=== PATIENT | female | born 1995 | race Caucasian/White ===

== ENCOUNTER 2018-07-20 09:09 | Emergency (ER) | payer OTHER, SELFPAY ==
[2018-07-20 09:11] VITALS: BP 113/63; PULSE 73; RESP 14; TEMP 36.8; O2SAT 100; BMI 23.8
--- NOTE | 2018-07-20 09:29 | ED.RN ---
PT IS TO BE DRUG TESTED THRU [facility] PER [employer] AT THE [facility]
--- NOTE | 2018-07-20 09:41 | ED.DCSUM_ITS ---
- ER Visit Summary Date of Service: 07/20/18 Chief Complaint: Right shoulder pain History of Present Illness: The patient is a 23 F who injured her right shoulder at work on July 18. 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 It is increasingly painful. Worse with use and better with rest. She has been taking ibuprofen, but the pain persistent. Denies any history of this in the past. No other medical or surgical history. Physical Examination: Afebrile and vital signs unremarkable. Patient sitting in no acute distress. Alert and oriented. Right shoulder shows normal inspection. Diffusely tender to palpation, especially over the superior scapular region. No laxity. Good range of motion. Sensation intact distally. Normal strength and pulses. Test Results: X-rays of the right shoulder are pending. Emergency Department Course and Treatment: Patient declined pain medicine. Will reassess after x-rays. X-rays were negative. Patient was given instructions to return to work. No lifting with her right arm. Follow-up with corporate care. Rest and ice. Anti-inflammatories for pain. Treatment Plan: Above Disposition: Discharged Impression: 1. Strain of right shoulder This note was generated with [employer] dictation software. It may contain incorrect words, spelling, and punctuation that were not noted in review of the chart prior to signing ED Disposition - Plan for ED Patient: Chief Complaint: Upper Extremity Injury Referrals: Syl Rivera MD [Primary Care Provider] -
--- NOTE | 2018-07-20 09:42 | RAD_ITS ---
STUDY: X-RAY - RIGHT SHOULDER REASON FOR EXAM: Female, 23 years old. Pain following injury. TECHNIQUE: 2 view(s) of the shoulder. COMPARISON: None. FINDINGS: Normal glenohumeral articulation. Normal acromioclavicular joint. Normal acromion. Normal humeral head and visualized proximal humerus. The soft tissue structures are unremarkable. Normal visualized pulmonary apex. RAD/Shoulder min 2 Views IMPRESSION: Normal x-ray examination of the shoulder. Electronically Signed: Miles Soria MD at 10:04 EST Tel [phone], Service support ,
--- NOTE | 2018-07-20 10:40 | ED.DEP ---
ED Disposition - Plan for ED Patient: Chief Complaint: Upper Extremity Injury Instructions: ED Sprain Shoulder Referrals: Corporate,[facility] [GROUP OF PHYSICIANS] -
--- NOTE | 2018-07-20 10:41 | DCINST.ED_ITS ---
ED Disposition - Plan for ED Patient: Chief Complaint: Upper Extremity Injury Instructions: ED Sprain Shoulder Referrals: Corporate,[facility] [GROUP OF PHYSICIANS] -
[2018-07-20 10:53] VITALS: BP 108/77; PULSE 62; RESP 15; O2SAT 98
== END 2018-07-20 10:55 | disposition home or self-care (01) ==
LOC: ED 09:38
PROVIDERS: Emergency Provider Emergency Medicine; Family Provider Family Medicine; PCP Family Medicine
DX: S46.911A Strain of unspecified muscle, fascia and tendon at shoulder and upper arm level, right arm, initial encounter (principal); X50.0XXA Overexertion from strenuous movement or load, initial encounter; Y93.89 Activity, other specified; Y92.89 Other specified places as the place of occurrence of the external cause; Y99.0 Civilian activity done for income or pay
CPT/HCPCS: 73030; 99282